=== PATIENT | male | born 1940 | race Caucasian/White ===

== ENCOUNTER 2020-11-04 10:21 | Inpatient (IN) | payer MEDICARE ==
[~2020-11-04] VITALS: Ht 182.9 cm; Wt 78.5 kg
--- NOTE | ~2020-11-04 | EEG ---
[address] [address] EEG STUDY REPORT Name: TAMMY BEATTY Room: [address] IN M.R.#: [id number] Admission: 11/04/20 Attend Phys: Miller Landis MD Discharge: 11/06/20 Date of : 44 Report #: [id number] THIS REPORT FOR: cc: Kathi Gastelum MD, Diane S. MD ~ Thad Chapman MD DATE OF SERVICE: 11/05/2020 This patient is being evaluated for altered mental status. EEG was done by placing the electrode by standard 10-20 system of electrode placement. Both referential and sequential montages were used for recording. The background activity in this patient's EEG is difficult to interpret because the patient's EEG is masked by a lot of artifact. It would appear it is about 7-8 Hz and 30 microvolt. Photic stimulation is unremarkable. It is tough to tell when the patient is drowsy or not. No active epileptiform activity was noticed. IMPRESSION: This patient's EEG is slow and poorly formed. That is a nonspecific abnormality, which can occur with encephalopathy, effect of psychotropic medication, etc. Clinical correlation is recommended. By: [id number] Chapman MD /nt
--- NOTE | ~2020-11-04 | CON ---
[address] [address] CONSULTATION Name: TAMMY BEATTY Room: [address] IN M.R.#: [id number] Admission: 11/04/20 Attend Phys: Miller Landis MD Discharge: Date of : 44 Report #: [id number] THIS REPORT FOR: cc: Kathi Gastelum MD, Diane S. MD ~ Thad Chapman MD DATE OF SERVICE: 11/04/2020 HISTORY OF PRESENT ILLNESS: This is a 80-year-old male patient who was evaluated by me for what looks like a seizure. The patient was seen in the Emergency Room and I reviewed those records and I talked to the patient's and she indicated that the patient was doing alright and then he fell down, he passed out. He was having blood from his mouth. It looks like he bit his tongue. No seizure activity was noticed at that time, but he was found to be confused. REVIEW OF SYSTEMS: Indicate that this patient has a history of dementia. He went to neurologist at [facility]. He was diagnosed with dementia. Sometime he will remember months and years and other times he would not. Interestingly, he was put on Dilantin by his primary care. He was having spasms in the right leg and she gave him Dilantin. think the spasms improved. About a month ago, he refused to take Dilantin and he has not taken any Dilantin since then. He does take Xanax, which he takes about once a week. He did have some hallucination recently. He chews tobacco all the time, but does not drink much alcohol. He is becoming better, but he became agitated. REVIEW OF SYSTEMS: A 14-point review of systems was carried out and looks like this patient has a history of Hodgkin's lymphoma. I carried out the rest of the 14-point review of systems. It does not look like he has any significant problem there. He does have a history of anxiety. He takes occasional Xanax for that. PAST MEDICAL HISTORY: Positive for dementia. Although, he never had any well-defined seizure. He was on Dilantin up to about a month ago. FAMILY HISTORY: Unremarkable for seizures. SOCIAL HISTORY: He chews tobacco, but does not drink alcohol much. PHYSICAL EXAMINATION: NEUROLOGIC: Indicates he is sleepy, but he can be awakened. When he awakened, he wakes up, but will not follow commands all the time. Simple commands has to be repeated many times before he can follow that, but he did follow many of those. He does not complain of any neck pain. He does [place] [address] CONSULTATION Name: TAMMY BEATTY Room: [address] IN ..#: [id number] Admission: 11/04/20 Attend Phys: Miller Landis MD Discharge: Date of : 44 Report #: [id number]. He did not know what the hospital is and who the president is. His speech looks intact. Cranial nerve examination, 2-12 looks unremarkable. Neuromuscular examination is symmetrical. He says his sensation is not good, but that is difficult to tell because of his altered mental status. His reflexes are normal in both lower extremities. Tone looks unremarkable. I could not look at the fundus and he does not understand the instructions to do cerebellar sign. There is no meningeal sign. CARDIAC: Examination is unremarkable. LUNGS: No respiratory difficulty. EXTREMITIES: Pulses are palpable. There is no edema, cyanosis or jaundice. VITAL SIGNS: Blood pressure is 167/79, respirations 20, pulse is 100, temperature is 99.1. LABORATORY DATA: His white count is 6.8. His lab otherwise is mostly unremarkable. He did have a CT scan of the head, which was reviewed and it shows no acute abnormality. IMPRESSION: Clinically, it would appear this patient has seizure. The patient with dementia or predisposed to have seizures and he may have been protected from having seizure because he was on Dilantin. I think he should be on some seizure medications. Problem is he may not take them. The one which allows least amount of side effect will be Lamictal. I will start him on that, but I will also like to do MRI and EEG on this patient. I did discuss the possibility of spinal tap in this patient and if the family wants to have it, we can do to complete the workup. Presently does not want to proceed with that. Thank you very much for allowing me to share in the management of this patient and we will follow the patient after MRI and EEG is done. By: [id number] 35Thad Chapman MD /sharon
[2020-11-04 10:22] VITALS: BP 179/101
[2020-11-04 10:44] LABS: ABSOLUTE EOSINOPHILS 0.1 thou/uL (0.0-0.7); ABSOLUTE LYMPHOCYTES 1.5 thou/uL (0.8-5.3); ABSOLUTE MONOCYTES 0.5 thou/uL (0.0-1.2); ABSOLUTE NEUTROPHILS 4.6 thou/uL (1.6-8.1); BASOPHILS 0.5 %; EOSINOPHILS 1.6 %; HEMOGLOBIN 14.5 gm/dL (14.0-18.0); LYMPHOCYTES 21.8 %; MCH 31.5 pg (26.0-34.0); MCHC 34.4 g/dL (28.0-37.0); MCV 91.7 fL (80.0-100.0); MONOCYTES 7.9 %; MPV 5.9 fl. (7.2-11.1); NUCLEATED RBCS 0 /100WBC; PLATELET COUNT* 299 thou/uL (150-400); POLYS 68.2 %; RBC 4.58 mil/uL (4.50-6.00); RDW-CV 12.8 % (10.5-14.5); WBC 6.8 thou/uL (4.0-11.0)
[2020-11-04 10:48] LABS: CALCIUM 9.1 mg/dL (8.5-10.1); CREATININE 1.2 mg/dL (0.6-1.3); POTASSIUM 3.7 mmol/L (3.5-5.1)
[2020-11-04 11:02] LABS: ALBUMIN 3.6 g/dL (3.4-5.0); CK-MB MASS 1.5 ng/mL (<0.5-3.6); TOTAL BILIRUBIN 0.4 mg/dL (<0.1-1.0); TOTAL PROTEIN 7.6 g/dL (6.4-8.2)
[2020-11-04 11:05] LABS: APTT 21.7 Seconds (25.0-31.3); PROTIME 10.3 Seconds (9.20-11.50)
[2020-11-04] MEDS ORDERED: VITAMIN D3100 MCG PO (11:18)
[2020-11-04 13:40] VITALS: BP 152/92
[2020-11-04 14:00] VITALS: BP 167/79
[2020-11-04] MEDS ORDERED: XANAX 0.5 MG0.5 M1 PO (15:31)
--- NOTE | 2020-11-04 16:29 | 2DMMODE ---
[place] [address] 2 D/M-MODE ECHOCARDIOGRAM Name: TAMMY BEATTY Room: [address] IN [facility]#: [id number] Admission: 11/04/20 Attend Phys: Miller Landis, Discharge: Date of : 44 Date of Service: 11/04/20 1628 Report #: [id number] THIS REPORT FOR: cc: Kathi Gastelum MD, Diane S. MD Holkins,Yovani Soliman MD [facility] ~ APPROVED REPORT Study performed: 11/04/2020 15:13:53 EXAM: Comprehensive 2D, Doppler, and color-flow Echocardiogram Patient Location: In-Patient Room #: [facility] Status: routine BSA: 2.02 HR: 74 bpm BP: 152/92 mmHg Rhythm: NSR Other Information Technically limited study due to inability to position patient, uncooperative patient, dementia. Indications CVA/TIA Echo Enhancing Agent Indication: Rule out Shunt Agent(s) / Amount(s) Used: Agitated Saline 10 cc 2D Dimensions IVSd: 10.90 (7-11mm) LVOT Diam: 20.48 (18-24mm) LVDd: 43.19 mm PWd: 10.34 (7-11mm) Ascending Ao: 30.19 (22-36mm) LVDs: 25.52 (25-40mm) Aortic Root: 37.13 mm Pulmonary Valve PV Peak Leighton.: 0.99 m/s PV Peak Gr.: 3.92 mmHg Tricuspid Valve RAP Estimate: 5.00 mmHg TR Peak Gr.: 18.72 mmHg RVSP: 23.00 mmHg PA Pressure: 23.00 [place] [address] 2 D/M-MODE ECHOCARDIOGRAM Name: TAMMY BEATTY Room: [address] IN [facility]#: [id number] Admission: 11/04/20 Attend Phys: iMller Landis, Discharge: Date of : 44 Date of Service: 11/04/20 1628 Report #: [id number] Left Ventricle The left ventricle is normal size. There is normal LV segmental wall motion. There is normal left ventricular wall thickness. The left ventricular systolic function is normal. The left ventricular ejection fraction is within the normal range. LVEF is 60-65%. This study is not technically sufficient to allow evaluation of the LV diastolic function. Right Ventricle The right ventricle is normal size. The right ventricular systolic function is normal. Atria The left atrium size is normal. The interatrial septum is intact with no evidence for an atrial septal defect. The right atrium size is normal. Aortic Valve Mild aortic valve sclerosis. No aortic regurgitation is present. There is no aortic valvular stenosis. Mitral Valve The mitral valve is normal in structure. There is no mitral valve regurgitation noted. Tricuspid Valve The tricuspid valve is normal in structure. Trace tricuspid regurgitation. No pulmonary hypertension. Pulmonic Valve Pulmonic valve is not well visualized. Great Vessels The aortic root is normal in size. IVC is normal in size and collapses >50% with inspiration. Pericardium There is no pericardial effusion. <Conclusion> The left ventricle is normal size. The left ventricular systolic function is normal. The left ventricular ejection fraction is within the normal range. LVEF is 60-65%. [place] [address] 2 D/M-MODE ECHOCARDIOGRAM Name: TAMMY BEATTY Room: [address] IN .R.#: [id number] Admission: 11/04/20 Attend Phys: Miller Landis, Discharge: Date of : 44 Date of Service: 11/04/20 1628 Report #: [id number] The right ventricle is normal size. The left atrium size is normal. Mild aortic valve sclerosis. No aortic regurgitation is present. There is no aortic valvular stenosis. The mitral valve is normal in structure. The tricuspid valve is normal in structure. IVC is normal in size and collapses >50% with inspiration. There is no pericardial effusion. There is normal LV segmental wall motion. The interatrial septum is intact with no evidence for an atrial septal defect. <ELECTRONICALLY SIGNED> By: Yovani Kincaid MD, [facility] 11/04/20 1628 27 27 Yovani Kincaid MD, [facility] /INF
[2020-11-04 16:36] LABS: URINE BILIRUBIN NEGATIVE (Negative); URINE BLOOD NEGATIVE (Negative); URINE CLARITY CLEAR; URINE COLOR YELLOW; URINE GLUCOSE-RANDOM NEGATIVE (Negative); URINE KETONES NEGATIVE (Negative); URINE LEUKOCYTES-REFLEX NEGATIVE (Negative); URINE NITRITE-REFLEX NEGATIVE (Negative); URINE PROTEIN TRACE (Negative); URINE UROBILINOGEN 0.2 E.U./dl (0.2-1.0)
--- NOTE | 2020-11-04 16:59 | EKG ---
[place] [address] ELECTROCARDIOGRAM REPORT Name: TAMMY BEATTY Room: [address] ADM IN .R.#: [id number] Admission: 11/04/20 Attend Phys: Miller Landis, Discharge: Date of : 44 Date of Service: 11/04/20 1028 Report #: [id number] THIS REPORT FOR: //name// [facility] ED Test Date: 2020-11-04 Test Time: 10:28:47 Pat Name: TAMMY BEATTY Department: Room: [facility] Gender: M School Year Nanny: : 1940 Requested By: Paulino Rivera Order Number: [id number] MD: Yovani Kincaid Measurements Intervals [place] Rate: 91 P: GA: QRS: -50 QRSD: 102 T: 36 QT: 347 QTc: 427 Interpretive Statements Atrial flutter Ventricular premature complex Left anterior fascicular block Minimal ST depression, lateral leads Compared to ECG 08/05/2009 12:28:43 Ventricular premature complex(es) now present Left anterior fascicular block now present ST (T wave) deviation now present Sinus rhythm no longer present Electronically Signed On 11-04-2020 16:59:31 ELECTRONIC WIRER by Yovani Kincaid [email or web address] <ELECTRONICALLY SIGNED> By: Yovani Kincaid MD, [facility] 11/04/20 1659 1028 1028 Yovani Kincaid MD, [facility] /EPI
[2020-11-04 23:45] VITALS: BP 139/70
[2020-11-05 02:08] LABS: GLYCOHEMOGLOBIN (HGB A1C) 5.5 % (4.8-5.6)
[2020-11-05 04:00] VITALS: BP 146/68
[2020-11-05 04:47] LABS: CHOLESTEROL 223 mg/dL (<200); HDL CHOLESTEROL 53 mg/dL (>40); LDL CHOLESTEROL 153 mg/dL (<100); TC:HDL 4.2 Ratio (Not establshd); TRIGLYCERIDE 87 mg/dL (<150); VLDL 17 mg/dL (<40)
[2020-11-05 04:48] LABS: SERUM ASSESSMENT Clear
[2020-11-05 08:00] VITALS: BP 130/66
[2020-11-05 12:29] VITALS: BP 107/69
[2020-11-05] MEDS ORDERED: ADULT LOW DOSE81 MG PO (12:58)
[2020-11-05 16:56] VITALS: BP 92/55
[2020-11-05 20:30] VITALS: BP 118/60
[2020-11-06] VITALS: BP 126/47
[2020-11-06 04:00] VITALS: BP 119/62
[2020-11-06 08:00] VITALS: BP 138/75
[2020-11-06] MEDS ORDERED: DEPAKOTE 250MG250 M1 PO (10:10)
[2020-11-06 11:24] VITALS: BP 119/62
[2020-11-06 13:11] VITALS: BP 119/62
== END 2020-11-06 13:33 | disposition home or self-care (01) | DRG 72 ==
LOC: M.ERS 10:21 → M.TBA-ER 11:51 → M.2W 11:51
PROVIDERS: Family Medicine; ADMIT Internal Medicine; ATTEND Internal Medicine
DX: G93.41 Metabolic encephalopathy (principal); F03.90 Unspecified dementia, unspecified severity, without behavioral disturbance, psychotic disturbance, mood disturbance, and anxiety; F17.220 Nicotine dependence, chewing tobacco, uncomplicated; R56.9 Unspecified convulsions; Z20.828 Contact with and (suspected) exposure to other viral communicable diseases; Z85.72 Personal history of non-Hodgkin lymphomas; Z79.899 Other long term (current) drug therapy

== ENCOUNTER 2020-12-27 22:15 | Inpatient (IN) | payer OTHER ==
[~2020-12-27] VITALS: Ht 185.4 cm; Wt 75.5 kg
[~2020-12-27 22:15] MED LIST: ADULT LOW DOSE81 MG PO; DEPAKOTE 250MG250 M1 PO; VITAMIN D3100 MCG PO; XANAX 0.5 MG0.5 M1 PO
[2020-12-27 22:17] VITALS: BP 147/49
[2020-12-27] MEDS ORDERED: DILANTIN-1125 MG/5 M (22:36)
[2020-12-27 23:00] LABS: ABSOLUTE EOSINOPHILS 0.5 thou/uL (0.0-0.7); ABSOLUTE MONOCYTES 0.8 thou/uL (0.0-1.2); ABSOLUTE NEUTROPHILS 4.3 thou/uL (1.6-8.1); BASOPHILS 0.7 %; EOSINOPHILS 7.4 %; HEMATOCRIT 37.7 % (42.0-52.0); HEMOGLOBIN 12.8 gm/dL (14.0-18.0); MCH 31.4 pg (26.0-34.0); MCV 92.4 fL (80.0-100.0); MONOCYTES 12.7 %; MPV 5.6 fl. (7.2-11.1); NUCLEATED RBCS 0 /100WBC; PLATELET COUNT* 320 thou/uL (150-400); POLYS 64.2 %; RBC 4.08 mil/uL (4.50-6.00); RDW-CV 13.4 % (10.5-14.5); WBC 6.7 thou/uL (4.0-11.0)
[2020-12-27 23:04] LABS: CALCIUM 8.7 mg/dL (8.5-10.1); CREATININE 1.1 mg/dL (0.6-1.3); POTASSIUM 3.7 mmol/L (3.5-5.1)
[2020-12-27 23:09] LABS: ALBUMIN 3.3 g/dL (3.4-5.0); TOTAL BILIRUBIN 0.1 mg/dL (<0.1-1.0); TOTAL PROTEIN 7.1 g/dL (6.4-8.2)
[2020-12-27 23:46] LABS: URINE BILIRUBIN NEGATIVE (Negative); URINE BLOOD NEGATIVE (Negative); URINE CLARITY CLEAR; URINE COLOR YELLOW; URINE GLUCOSE-RANDOM NEGATIVE (Negative); URINE KETONES NEGATIVE (Negative); URINE LEUKOCYTES-REFLEX NEGATIVE (Negative); URINE NITRITE-REFLEX NEGATIVE (Negative); URINE PROTEIN NEGATIVE (Negative); URINE UROBILINOGEN 0.2 E.U./dl (0.2-1.0)
[2020-12-28 01:15] VITALS: BP 130/70
[2020-12-28 01:35] VITALS: BP 154/75
[2020-12-28 08:00] VITALS: BP 131/54
[2020-12-28] MEDS ORDERED: DILANTIN-1125 MG/5 M PO (11:49)
[2020-12-28 16:00] VITALS: BP 131/75
[2020-12-28 23:30] VITALS: BP 162/84
[2020-12-29 04:25] VITALS: BP 129/73
[2020-12-29 04:51] LABS: HEMATOCRIT 37.2 % (42.0-52.0); HEMOGLOBIN 12.6 gm/dL (14.0-18.0); MCH 31.1 pg (26.0-34.0); MCHC 33.9 g/dL (28.0-37.0); MCV 91.7 fL (80.0-100.0); MPV 5.9 fl. (7.2-11.1); RBC 4.06 mil/uL (4.50-6.00); RDW-CV 13.5 % (10.5-14.5); WBC 6.2 thou/uL (4.0-11.0)
[2020-12-29 05:12] LABS: ALBUMIN 3.1 g/dL (3.4-5.0); CALCIUM 9.2 mg/dL (8.5-10.1); CREATININE 0.9 mg/dL (0.6-1.3); POTASSIUM 3.9 mmol/L (3.5-5.1); TOTAL BILIRUBIN 0.3 mg/dL (<0.1-1.0); TOTAL PROTEIN 6.9 g/dL (6.4-8.2)
[2020-12-29 08:00] VITALS: BP 127/74
[2020-12-29 15:33] VITALS: BP 144/72
[2020-12-29] MEDS ORDERED: ZYPREXA 5 MG TAB5 M1 PO (15:39)
[2020-12-29] MEDS ORDERED: HALDOL 0.5 MG0.5 MG PO (15:39)
[2020-12-29] MEDS ORDERED: FOLIC ACID1 MG PO (15:39)
[2020-12-29 20:00] VITALS: BP 160/70
[2020-12-30 08:00] VITALS: BP 140/62
[2020-12-30] MEDS ORDERED: XANAX 0.5 MG0.5 MG PO (12:07)
== END 2020-12-30 11:13 | DRG 884 ==
LOC: M.ERS 22:15 → M.TBA-ER 12-28 00:56 → M.2W 12-28 00:56 → M.ERS 12-28 01:15 → M.2W 12-28 01:33
PROVIDERS: Internal Medicine; Personal Emergency Response Attendant; ADMIT Family Medicine; ATTEND Family Medicine
DX: F03.91 Unspecified dementia, unspecified severity, with behavioral disturbance (principal); R45.1 Restlessness and agitation; F17.210 Nicotine dependence, cigarettes, uncomplicated; G40.909 Epilepsy, unspecified, not intractable, without status epilepticus; Z20.822 Contact with and (suspected) exposure to COVID-19; Z85.72 Personal history of non-Hodgkin lymphomas; Z79.899 Other long term (current) drug therapy